=== PATIENT | female | born 1975 | race Caucasian/White ===

== ENCOUNTER 2024-04-02 10:40 | Outpatient (CLI) | payer BC | END 2024-04-02 10:41 | disposition home or self-care (01) | LOC: CSHCT 10:40 | PROVIDERS: ATTEND Otolaryngology Plastic Surgery within the Head & Neck | DX: H92.12 Otorrhea, left ear (principal); H65.22 Chronic serous otitis media, left ear; H93.92 Unspecified disorder of left ear | CPT/HCPCS: 70480 ==